=== PATIENT | male | born 1990 | race African-American/Black ===

== ENCOUNTER 2017-06-02 12:18 | Emergency (ER) | payer SELFPAY ==
[~2017-06-02] VITALS: Ht 172.7 cm; Wt 72.0 kg
[~2017-06-02 12:18] MED LIST: AMOXICILLIN500 MG PO; ANAPROX DS550 MG OR; NAPROSYN500 MG PO; RITALIN10 MG OR; ULTRAM50 M1 PO; ULTRAM50 MG OR; ULTRAM50 MG PO; ZOFRAN4 MG/TAB PO; [UNRECOGNIZED DRUG - REMARK]
[2017-06-02 14:22] LABS: HEMATOCRIT 44.7 % (39.0-50.0); HEMOGLOBIN 15.2 g/dl (14.0-18.0); IMMATURE GRANULOCYTES 0.4 % (0.0-1.0); MEAN CELL VOLUME 90.1 fL CALC (80.0-100.0); MEAN CORPUSCULAR HGB 30.6 pG CALC (26.0-32.0); NEUT# 11.23 thou/uL (1.82-7.42); RED BLOOD COUNT 4.96 mill/uL (4.70-6.10); RED CELL DISTRI WIDTH 13.4 % (11.5-15.5)
[2017-06-02 14:42] LABS: ALBUMIN 4.5 g/dL (3.2-5.0); ALKALINE PHOSPHATASE 103 u/l (38-126); ANION GAP 15 (6-22 (CALC)); BILIRUBIN, TOTAL 1.4 mg/dL (0.0-1.4); BUN 8 mg/dL (9-20); BUN/CREATININE RATIO 8 (12-20 (CALC)); CALCIUM 9.9 mg/dL (8.4-10.2); CARBON DIOXIDE 24 mmol/l (22-30); CHLORIDE 103 mmol/l (95-108); CREATININE 0.9 mg/dL (0.7-1.3); GFR > 60 ML/MIN (>=60 (CALC)); GFR FOR AFR.AMER. > 60 ML/MIN (>=60 (CALC)); GLUCOSE 88 mg/dL (75-110); POTASSIUM 3.6 mmol/l (3.5-5.1); SGOT/AST 24 u/l (17-59); SGPT/ALT 20 u/l (21-72); SODIUM 139 mmol/l (137-146); TOTAL PROTEIN 8.1 g/dL (6.3-8.2)
[2017-06-02] MEDS ORDERED: CLEOCIN300 MG PO (16:14)
[2017-06-02] MEDS ORDERED: TORADOL PO (16:14)
[2017-06-02 16:44] VITALS: BP 150/65
== END 2017-06-02 16:56 | disposition home or self-care (01) | DRG 605 ==
LOC: ED 12:18
PROVIDERS: Emergency Medicine
DX: S50.12XA Contusion of left forearm, initial encounter (principal); F17.210 Nicotine dependence, cigarettes, uncomplicated; F19.90 Other psychoactive substance use, unspecified, uncomplicated; X58.XXXA Exposure to other specified factors, initial encounter; Y93.89 Activity, other specified; Z59.0 Homelessness
CPT/HCPCS: Q9967

== ENCOUNTER 2018-01-21 08:48 | Emergency (ER) | payer SELFPAY ==
[~2018-01-21] VITALS: Ht 172.7 cm; Wt 80.0 kg
[~2018-01-21 08:48] MED LIST changes: +CLEOCIN300 MG PO; +TORADOL PO
[2018-01-21 09:36] VITALS: BP 129/83
== END 2018-01-21 09:45 | disposition home or self-care (01) | DRG 914 ==
LOC: ED 08:48
DX: S21.142A Puncture wound with foreign body of left front wall of thorax without penetration into thoracic cavity, initial encounter (principal); W34.010A Accidental discharge of airgun, initial encounter; Y93.89 Activity, other specified; Y92.009 Unspecified place in unspecified non-institutional (private) residence as the place of occurrence of the external cause

== ENCOUNTER 2018-06-25 23:40 | Emergency (ER) | payer SELFPAY ==
[~2018-06-25] VITALS: Ht 152.4 cm; Wt 200.0 kg
[2018-06-26 00:33] LABS: HEMATOCRIT 41.2 % (39.0-50.0); HEMOGLOBIN 13.3 g/dl (14.0-18.0); IMMATURE GRANULOCYTES 0.1 % (0.0-5.0); MEAN CELL VOLUME 91.4 fL CALC (80.0-100.0); MEAN CORPUSCULAR HGB 29.5 pG CALC (26.0-32.0); MEAN CORPUSCULAR HGB CONC 32.3 g/L CALC (32.0-36.0); NEUT# 2.95 thou/uL (1.82-7.42); RED BLOOD COUNT 4.51 mill/uL (4.70-6.10); RED CELL DISTRI WIDTH 14.1 % (11.5-15.5)
[2018-06-26 00:59] LABS: ALKALINE PHOSPHATASE 96 u/l (38-126); BUN 16 mg/dL (9-20); BUN/CREATININE RATIO 11 (12-20 (CALC)); CHLORIDE 102 mmol/l (95-108); CREATININE 1.5 mg/dL (0.7-1.3); GFR 56 ML/MIN (>=60 (CALC)); GFR FOR AFR.AMER. > 60 ML/MIN (>=60 (CALC)); POTASSIUM 3.3 mmol/l (3.5-5.1); SODIUM 139 mmol/l (137-146)
[2018-06-26 01:06] LABS: ALBUMIN 4.5 g/dL (3.2-5.0); ANION GAP 22 (6-22 (CALC)); CARBON DIOXIDE 18 mmol/l (22-30); ETHYL ALCOHOL < 10 mg/dl (0-30); SGOT/AST 77 u/l (17-59); TOTAL PROTEIN 8.1 g/dL (6.3-8.2)
[2018-06-26 01:07] LABS: MYOGLOBIN 590 ng/mL (0 - 121)
[2018-06-26 01:48] LABS: URINE BILIRUBIN - DIPSTICK NEGATIVE (NEGATIVE); URINE BLOOD DIPSTICK NEGATIVE (NEGATIVE); URINE COLOR YELLOW; URINE GLUCOSE - DIPSTICK NEGATIVE (NEGATIVE); URINE KETONE NEGATIVE (NEGATIVE); URINE LEUK ESTERASE NEGATIVE (NEGATIVE); URINE NITRITE - DIPSTICK NEGATIVE (Negative); URINE PH 5.5 (4.5-8.0); URINE PROTEIN - DIPSTICK NEGATIVE (NEG-TRACE); URINE SPECIFIC GRAVITY >=1.030; URINE UROBILINOGEN - DIPSTICK 0.2 E.U./dL (0.2)
[2018-06-26 01:53] LABS: COCAINE POSITIVE (NEGATIVE); TETRAHYDROCANNABIONOL POSITIVE (NEGATIVE)
[2018-06-26 01:54] LABS: BARBITURATES NEGATIVE (NEGATIVE); METHADONE NEGATIVE (NEGATIVE); OXCYCODONE NEGATIVE (NEGATIVE); TRICYLIC ANTIDEPRESSANTS NEGATIVE (NEGATIVE)
[2018-06-26] MEDS ORDERED: ACCUPRIL5 MG PO (07:49)
[2018-06-26 09:20] LABS: ALBUMIN 4.5 g/dL (3.2-5.0); ALKALINE PHOSPHATASE 95 u/l (38-126); ANION GAP 25 (6-22 (CALC)); BILIRUBIN, TOTAL 0.9 mg/dL (0.0-1.4); BUN 16 mg/dL (9-20); BUN/CREATININE RATIO 11 (12-20 (CALC)); CARBON DIOXIDE 17 mmol/l (22-30); CHLORIDE 102 mmol/l (95-108); CREATININE 1.4 mg/dL (0.7-1.3); GFR > 60 ML/MIN (>=60 (CALC)); GFR FOR AFR.AMER. > 60 ML/MIN (>=60 (CALC)); POTASSIUM 3.3 mmol/l (3.5-5.1); SGOT/AST 82 u/l (17-59); SODIUM 141 mmol/l (137-146); TOTAL PROTEIN 8.1 g/dL (6.3-8.2)
[2018-06-26 10:40] VITALS: BP 143/86
--- NOTE | 2018-06-28 07:35 | NUR ---
Preliminary blood cultures results, gram positive cocci 3/4 bottles, faxed to [facility]
== END 2018-06-26 10:40 | disposition short-term general hospital (02) | DRG 918 ==
LOC: ED 23:40
PROVIDERS: Family Medicine
PROC: 02HV33Z Insertion of Infusion Device into Superior Vena Cava, Percutaneous Approach (ICD-10-PCS; principal; 2018-06-25)
PROC: 0BH17EZ Insertion of Endotracheal Airway into Trachea, Via Natural or Artificial Opening (ICD-10-PCS; 2018-06-25)
PROC: 5A1935Z Respiratory Ventilation, Less than 24 Consecutive Hours (ICD-10-PCS; 2018-06-25)
PROC: 0T9B70Z Drainage of Bladder with Drainage Device, Via Natural or Artificial Opening (ICD-10-PCS; 2018-06-25)
DX: T43.621A Poisoning by amphetamines, accidental (unintentional), initial encounter (principal); M62.82 Rhabdomyolysis; T40.5X1A Poisoning by cocaine, accidental (unintentional), initial encounter; T40.7X1A Poisoning by cannabis (derivatives), accidental (unintentional), initial encounter; T40.991A Poisoning by other psychodysleptics [hallucinogens], accidental (unintentional), initial encounter; F12.10 Cannabis abuse, uncomplicated; F14.10 Cocaine abuse, uncomplicated; F16.10 Hallucinogen abuse, uncomplicated; F15.10 Other stimulant abuse, uncomplicated; F17.200 Nicotine dependence, unspecified, uncomplicated
CPT/HCPCS: J2060

== ENCOUNTER 2022-02-12 01:36 | Emergency (ER) | payer SELFPAY ==
[~2022-02-12] VITALS: Ht 172.7 cm; Wt 86.0 kg
[~2022-02-12 01:36] MED LIST changes: +ACCUPRIL5 MG PO
[2022-02-12 01:48] VITALS: BP 145/89
[2022-02-12 02:15] VITALS: BP 146/90
[2022-02-12 02:30] VITALS: BP 127/78
[2022-02-12 02:34] LABS: HEMATOCRIT 38.5 % (39.0-50.0); IMMATURE GRANULOCYTES 0.5 % (0.0-5.0); MEAN CELL VOLUME 87.9 fL CALC (80.0-100.0); MEAN CORPUSCULAR HGB 29.7 pG CALC (26.0-32.0); MEAN CORPUSCULAR HGB CONC 33.8 g/dL CAL (32.0-36.0); NEUT# 5.39 thou/uL (1.82-7.42); RED BLOOD COUNT 4.38 mill/uL (4.70-6.10); RED CELL DISTRI WIDTH 15.6 % (11.5-15.5)
[2022-02-12 02:36] LABS: URINE COLOR YELLOW; URINE GLUCOSE - DIPSTICK NEGATIVE (NEGATIVE); URINE KETONE TRACE mg/dL (NEGATIVE); URINE PROTEIN - DIPSTICK TRACE mg/dL (NEG-TRACE); URINE SPECIFIC GRAVITY 1.025
[2022-02-12 02:39] LABS: ALBUMIN 3.9 g/dL (3.2-5.0); ALKALINE PHOSPHATASE 96 u/l (38-126); BILIRUBIN, TOTAL 0.8 mg/dL (0.0-1.4); BUN 7 mg/dL (9-20); BUN/CREATININE RATIO 8 (12-20 (CALC)); CHLORIDE 100 mmol/l (95-108); ETHYL ALCOHOL 0 mg/dl (0-30); GFR FOR AFR.AMER. > 60 ML/MIN (>=60 (CALC)); GFR OTHER RACES > 60 ML/MIN (>=60 (CALC)); POTASSIUM 2.9 mmol/l (3.5-5.1); SGOT/AST 26 u/l (17-59); TOTAL PROTEIN 7.6 g/dL (6.3-8.2)
[2022-02-12 02:41] LABS: ANION GAP 10 (6-22 (CALC)); CARBON DIOXIDE 26 mmol/l (22-30); SODIUM 133 mmol/l (137-146)
[2022-02-12 02:45] VITALS: BP 131/88
[2022-02-12 02:45] LABS: URINE BILIRUBIN - DIPSTICK SMALL (NEGATIVE); URINE NITRITE - DIPSTICK NEGATIVE (Negative)
[2022-02-12 02:46] LABS: URINE BLOOD DIPSTICK NEGATIVE (NEGATIVE); URINE EPITHELIAL CELLS FEW EPI/hpf (0-FEW); URINE LEUK ESTERASE SMALL (NEGATIVE); URINE WBC 50-100 WBC/hpf (0-5)
[2022-02-12 02:47] LABS: URINE BACTERIA MODERATE hpf; URINE MUCUS MODERATE hpf (NONE-FEW)
[2022-02-12 03:30] VITALS: BP 131/88
== END 2022-02-12 03:42 | disposition home or self-care (01) | DRG 897 ==
LOC: ED 01:36
PROVIDERS: Emergency Medicine
DX: F15.10 Other stimulant abuse, uncomplicated (principal); F12.10 Cannabis abuse, uncomplicated; E87.6 Hypokalemia

== ENCOUNTER 2022-03-31 19:22 | Emergency (ER) | payer SELFPAY ==
[~2022-03-31] VITALS: Ht 172.7 cm; Wt 70.0 kg
[2022-03-31 19:29] VITALS: BP 125/75
[2022-03-31 19:45] VITALS: BP 113/61
[2022-03-31 19:51] LABS: HEMATOCRIT 37.4 % (39.0-50.0); HEMOGLOBIN 12.8 g/dl (14.0-18.0); IMMATURE GRANULOCYTES 0.2 % (0.0-5.0); MEAN CORPUSCULAR HGB 31.1 pG CALC (26.0-32.0); MEAN CORPUSCULAR HGB CONC 34.2 g/dL CAL (32.0-36.0); NEUT# 3.73 thou/uL (1.82-7.42); RED BLOOD COUNT 4.11 mill/uL (4.70-6.10); RED CELL DISTRI WIDTH 14.1 % (11.5-15.5)
[2022-03-31 20:00] VITALS: BP 111/65
[2022-03-31 20:09] LABS: ALBUMIN 3.5 g/dL (3.2-5.0); ALKALINE PHOSPHATASE 97 u/l (38-126); BUN 12 mg/dL (9-20); BUN/CREATININE RATIO 15 (12-20 (CALC)); CARBON DIOXIDE 26 mmol/l (22-30); CHLORIDE 106 mmol/l (95-108); CREATININE 0.9 mg/dL (0.7-1.3); ETHYL ALCOHOL 0 mg/dl (0-30); GFR FOR AFR.AMER. > 60 ML/MIN (>=60 (CALC)); GFR OTHER RACES > 60 ML/MIN (>=60 (CALC)); MAGNESIUM 2.1 mg/dL (1.6-2.3); SGOT/AST 25 u/l (17-59); SODIUM 138 mmol/l (137-146); TOTAL PROTEIN 6.7 g/dL (6.3-8.2)
[2022-03-31 20:10] LABS: ANION GAP 10 (6-22 (CALC)); BILIRUBIN, TOTAL 0.3 mg/dL (0.0-1.4); POTASSIUM 3.5 mmol/l (3.5-5.1)
[2022-03-31 20:15] VITALS: BP 118/65
[2022-03-31 20:30] VITALS: BP 118/71
[2022-03-31 20:45] VITALS: BP 117/80
[2022-03-31 22:30] LABS: URINE BILIRUBIN - DIPSTICK NEGATIVE (NEGATIVE); URINE BLOOD DIPSTICK NEGATIVE (NEGATIVE); URINE COLOR YELLOW; URINE GLUCOSE - DIPSTICK NEGATIVE (NEGATIVE); URINE KETONE NEGATIVE (NEGATIVE); URINE LEUK ESTERASE TRACE (NEGATIVE); URINE PH 5.5 (4.5-8.0); URINE PROTEIN - DIPSTICK NEGATIVE (NEG-TRACE); URINE SPECIFIC GRAVITY >=1.030; URINE UROBILINOGEN - DIPSTICK 0.2 E.U./dL (0.2)
[2022-03-31 22:43] LABS: URINE NITRITE - DIPSTICK NEGATIVE (Negative)
[2022-04-03 20:10] VITALS: BP 112/77
== END 2022-04-03 20:30 | DRG 897 ==
LOC: ED 19:22
PROVIDERS: Family Medicine
DX: F19.10 Other psychoactive substance abuse, uncomplicated (principal); R45.851 Suicidal ideations; F32.A Depression, unspecified
CPT/HCPCS: J2060; S0166

== ENCOUNTER 2022-06-21 06:38 | Emergency (ER) | payer SELFPAY ==
[2022-06-21] VITALS (31 sets, daily range): BP systolic 95–126; BP diastolic 53–76
[~2022-06-21] VITALS: Ht 172.7 cm; Wt 70.0 kg
[2022-06-21 08:32] LABS: BASO% 0.2 % (0-3); EOS% 0.7 % (0-8); HEMATOCRIT 40.3 % (39.0-50.0); HEMOGLOBIN 13.1 g/dl (14.0-18.0); IMMATURE GRANULOCYTES 0.1 % (0.0-5.0); LYMPH% 18.7 % (15-41); MEAN CELL VOLUME 89.8 fL CALC (80.0-100.0); MEAN CORPUSCULAR HGB 29.2 pG CALC (26.0-32.0); MEAN CORPUSCULAR HGB CONC 32.5 g/dL CAL (32.0-36.0); MONO% 6.4 % (2-13); NEUT# 6.07 thou/uL (1.82-7.42); NEUT% 73.9 % (42-76); RED BLOOD COUNT 4.49 mill/uL (4.70-6.10); RED CELL DISTRI WIDTH 13.2 % (11.5-15.5)
[2022-06-21 08:52] LABS: ALBUMIN 4.2 g/dL (3.2-5.0); ALKALINE PHOSPHATASE 94 u/l (38-126); ANION GAP 12 (6-22 (CALC)); BUN 16 mg/dL (9-20); BUN/CREATININE RATIO 14 (12-20 (CALC)); CARBON DIOXIDE 24 mmol/l (22-30); CHLORIDE 102 mmol/l (95-108); CREATININE 1.2 mg/dL (0.7-1.3); GFR FOR AFR.AMER. > 60 ML/MIN (>=60 (CALC)); GFR OTHER RACES > 60 ML/MIN (>=60 (CALC)); POTASSIUM 3.8 mmol/l (3.5-5.1); SGOT/AST 33 u/l (17-59); SODIUM 134 mmol/l (137-146); TOTAL PROTEIN 7.4 g/dL (6.3-8.2)
[2022-06-21 09:00] LABS: ETHYL ALCOHOL 0 mg/dl (0-30)
[2022-06-21 10:35] LABS: URINE BILIRUBIN - DIPSTICK NEGATIVE (NEGATIVE); URINE BLOOD DIPSTICK NEGATIVE (NEGATIVE); URINE COLOR YELLOW; URINE GLUCOSE - DIPSTICK NEGATIVE (NEGATIVE); URINE KETONE NEGATIVE (NEGATIVE); URINE LEUK ESTERASE NEGATIVE (NEGATIVE); URINE PROTEIN - DIPSTICK NEGATIVE (NEG-TRACE); URINE SPECIFIC GRAVITY >=1.030; URINE UROBILINOGEN - DIPSTICK 0.2 E.U./dL (0.2)
[2022-06-21 10:54] LABS: URINE NITRITE - DIPSTICK NEGATIVE (Negative)
== END 2022-06-21 15:50 | disposition home or self-care (01) | DRG 918 ==
LOC: ED 06:38
PROVIDERS: Family Medicine
DX: T43.651A Poisoning by methamphetamines accidental (unintentional), initial encounter (principal); Y92.9 Unspecified place or not applicable; F17.210 Nicotine dependence, cigarettes, uncomplicated
CPT/HCPCS: J2060

== ENCOUNTER 2022-06-28 02:13 | Emergency (ER) | payer SELFPAY ==
[2022-06-28] VITALS (39 sets, daily range): BP systolic 104–164; BP diastolic 60–109
[~2022-06-28] VITALS: Ht 172.7 cm; Wt 72.5 kg
[2022-06-28 08:06] LABS: URINE BLOOD DIPSTICK NEGATIVE (NEGATIVE); URINE COLOR YELLOW; URINE GLUCOSE - DIPSTICK NEGATIVE (NEGATIVE); URINE KETONE TRACE mg/dL (NEGATIVE); URINE LEUK ESTERASE TRACE (NEGATIVE); URINE PH 5.5 (4.5-8.0); URINE PROTEIN - DIPSTICK NEGATIVE (NEG-TRACE); URINE SPECIFIC GRAVITY >=1.030; URINE UROBILINOGEN - DIPSTICK 0.2 E.U./dL (0.2)
[2022-06-28 08:07] LABS: BASO% 0.1 % (0-3); EOS% 1.4 % (0-8); IMMATURE GRANULOCYTES 0.1 % (0.0-5.0); LYMPH% 24.6 % (15-41); MEAN CELL VOLUME 91.1 fL CALC (80.0-100.0); MEAN CORPUSCULAR HGB 29.7 pG CALC (26.0-32.0); MEAN CORPUSCULAR HGB CONC 32.6 g/dL CAL (32.0-36.0); MONO% 7.3 % (2-13); NEUT# 4.71 thou/uL (1.82-7.42); NEUT% 66.5 % (42-76); RED BLOOD COUNT 4.72 mill/uL (4.70-6.10); RED CELL DISTRI WIDTH 13.1 % (11.5-15.5)
[2022-06-28 08:19] LABS: URINE BILIRUBIN - DIPSTICK SMALL (NEGATIVE); URINE NITRITE - DIPSTICK NEGATIVE (Negative)
[2022-06-28 08:31] LABS: ALBUMIN 3.8 g/dL (3.2-5.0); ALKALINE PHOSPHATASE 69 u/l (38-126); ANION GAP 10 (6-22 (CALC)); BUN 11 mg/dL (9-20); BUN/CREATININE RATIO 12 (12-20 (CALC)); CARBON DIOXIDE 26 mmol/l (22-30); CHLORIDE 105 mmol/l (95-108); CREATININE 0.9 mg/dL (0.7-1.3); GFR FOR AFR.AMER. > 60 ML/MIN (>=60 (CALC)); GFR OTHER RACES > 60 ML/MIN (>=60 (CALC)); SGOT/AST 41 u/l (17-59); SODIUM 136 mmol/l (137-146)
[2022-06-28 08:32] LABS: POTASSIUM 4.6 mmol/l (3.5-5.1)
== END 2022-06-28 15:34 | disposition home or self-care (01) | DRG 918 ==
LOC: ED 02:13
PROVIDERS: Family Medicine
DX: T43.651A Poisoning by methamphetamines accidental (unintentional), initial encounter (principal); Y92.9 Unspecified place or not applicable; F17.210 Nicotine dependence, cigarettes, uncomplicated
CPT/HCPCS: J2060

== ENCOUNTER 2022-07-21 05:15 | Emergency (ER) | payer SELFPAY ==
[~2022-07-21] VITALS: Ht 172.7 cm; Wt 72.0 kg
[2022-07-21 05:54] LABS: BASO% 0.3 % (0-3); EOS% 1.2 % (0-8); HEMATOCRIT 38.8 % (39.0-50.0); IMMATURE GRANULOCYTES 0.1 % (0.0-5.0); LYMPH% 20.5 % (15-41); MEAN CELL VOLUME 91.3 fL CALC (80.0-100.0); MEAN CORPUSCULAR HGB 30.6 pG CALC (26.0-32.0); MEAN CORPUSCULAR HGB CONC 33.5 g/dL CAL (32.0-36.0); MONO% 7.6 % (2-13); NEUT# 4.74 thou/uL (1.82-7.42); NEUT% 70.3 % (42-76); RED BLOOD COUNT 4.25 mill/uL (4.70-6.10); RED CELL DISTRI WIDTH 13.4 % (11.5-15.5)
[2022-07-21 06:07] LABS: ALKALINE PHOSPHATASE 95 u/l (38-126); BILIRUBIN, TOTAL 0.8 mg/dL (0.2-1.3); BUN 14 mg/dL (9-20); BUN/CREATININE RATIO 14 (12-20 (CALC)); CARBON DIOXIDE 24 mmol/l (22-30); CHLORIDE 109 mmol/l (95-108); ETHYL ALCOHOL 0 mg/dl (0-30); GFR FOR AFR.AMER. > 60 ML/MIN (>=60 (CALC)); GFR OTHER RACES > 60 ML/MIN (>=60 (CALC)); SGOT/AST 25 u/l (17-59); SODIUM 138 mmol/l (137-146); TOTAL PROTEIN 7.1 g/dL (6.3-8.2)
[2022-07-21 06:08] LABS: ANION GAP 8 (6-22 (CALC)); POTASSIUM 3.4 mmol/l (3.5-5.1)
[2022-07-21 07:52] LABS: URINE BILIRUBIN - DIPSTICK NEGATIVE (NEGATIVE); URINE BLOOD DIPSTICK NEGATIVE (NEGATIVE); URINE COLOR YELLOW; URINE GLUCOSE - DIPSTICK NEGATIVE (NEGATIVE); URINE KETONE NEGATIVE (NEGATIVE); URINE LEUK ESTERASE NEGATIVE (NEGATIVE); URINE PH 5.5 (4.5-8.0); URINE PROTEIN - DIPSTICK NEGATIVE (NEG-TRACE); URINE SPECIFIC GRAVITY >=1.030; URINE UROBILINOGEN - DIPSTICK 0.2 E.U./dL (0.2)
[2022-07-21 07:54] LABS: URINE NITRITE - DIPSTICK NEGATIVE (Negative)
[2022-07-23 12:10] VITALS: BP 130/77
== END 2022-07-23 12:10 | disposition home or self-care (01) | DRG 880 ==
LOC: ED 05:15
PROVIDERS: Family Medicine
DX: R45.851 Suicidal ideations (principal); R41.82 Altered mental status, unspecified; Z20.822 Contact with and (suspected) exposure to COVID-19; F17.210 Nicotine dependence, cigarettes, uncomplicated; F19.10 Other psychoactive substance abuse, uncomplicated; R45.1 Restlessness and agitation; S01.01XA Laceration without foreign body of scalp, initial encounter; W22.8XXA Striking against or struck by other objects, initial encounter
CPT/HCPCS: J2060

== ENCOUNTER 2022-08-22 13:43 | Emergency (ER) | payer SELFPAY ==
[2022-08-23] MEDS ORDERED: LOTRISONE EX (23:10)
[2022-08-24] MEDS ORDERED: ZYPREXA20 MG PO (00:41)
[2022-08-24] MEDS ORDERED: SEROQUEL200 MG PO (00:41)
== END 2022-08-22 14:15 | disposition left against medical advice (07) | DRG 951 ==
LOC: ED 13:43 → LWOBS 14:15 → ED 14:15
DX: Z53.21 Procedure and treatment not carried out due to patient leaving prior to being seen by health care provider (principal)

== ENCOUNTER 2022-08-23 22:46 | Emergency (ER) | payer SELFPAY ==
[~2022-08-23] VITALS: Ht 172.7 cm; Wt 63.0 kg
[2022-08-23] MEDS ORDERED: LOTRISONE EX (23:10)
[2022-08-23 23:40] VITALS: BP 134/78
[2022-08-24] MEDS ORDERED: ZYPREXA20 MG PO (00:41)
[2022-08-24] MEDS ORDERED: SEROQUEL200 MG PO (00:41)
== END 2022-08-23 23:40 | disposition home or self-care (01) | DRG 607 ==
LOC: ED 22:46
DX: R21 Rash and other nonspecific skin eruption (principal); F17.200 Nicotine dependence, unspecified, uncomplicated

== ENCOUNTER 2023-10-01 03:51 | Emergency (ER) | payer SELFPAY ==
[~2023-10-01] VITALS: Ht 172.7 cm; Wt 70.0 kg
[~2023-10-01 03:51] MED LIST changes: +LOTRISONE EX; +SEROQUEL200 MG PO; +ZYPREXA20 MG PO
[2023-10-01 04:11] VITALS: BP 131/89
[2023-10-01] MEDS ORDERED: BUTALBITAL-APAP-CAFFEINE 50-325-40 TAB PO ONE (04:15)
[2023-10-01] MEDS ORDERED: IBUPROFEN 600 MG/TAB PO ONE (04:15)
[2023-10-01 04:30] VITALS: BP 131/76
[2023-10-01 04:36] VITALS: BP 131/76
== END 2023-10-01 04:36 | disposition home or self-care (01) | DRG 914 ==
LOC: ED 03:51
DX: T14.8XXA Other injury of unspecified body region, initial encounter (principal); F10.10 Alcohol abuse, uncomplicated; F15.10 Other stimulant abuse, uncomplicated; Z59.00 Homelessness unspecified; F25.9 Schizoaffective disorder, unspecified; F17.200 Nicotine dependence, unspecified, uncomplicated; X58.XXXA Exposure to other specified factors, initial encounter

== ENCOUNTER 2023-10-02 14:57 | Emergency (ER) | payer SELFPAY ==
[~2023-10-02] VITALS: Ht 172.7 cm; Wt 68.0 kg
[2023-10-02 15:49] LABS: BASO% 0.1 % (0-3); EOS% 0.7 % (0-8); HEMATOCRIT 42.6 % (39.0-50.0); HEMOGLOBIN 13.9 g/dl (14.0-18.0); IMMATURE GRANULOCYTES 0.2 % (0.0-5.0); LYMPH% 13.2 % (15-41); MEAN CELL VOLUME 88.9 fL CALC (80.0-100.0); MEAN CORPUSCULAR HGB CONC 32.6 g/dL CAL (32.0-36.0); MONO% 10.2 % (2-13); NEUT# 6.3 thou/uL (1.82-7.42); NEUT% 75.6 % (42-76); RED BLOOD COUNT 4.79 mill/uL (4.70-6.10)
[2023-10-02 16:21] LABS: ALBUMIN 4.2 g/dL (3.2-5.0); ALKALINE PHOSPHATASE 92 u/l (38-126); BUN 20 mg/dL (9-20); BUN/CREATININE RATIO 17 (12-20 (CALC)); CHLORIDE 107 mmol/l (95-108); CREATININE 1.2 mg/dL (0.7-1.3); ESTIMATED GFR 82 ML/MIN (>=90 (CALC)); ETHYL ALCOHOL 0 mg/dl (0-30); SGOT/AST 43 u/l (17-59); SODIUM 140 mmol/l (137-146); TOTAL PROTEIN 8.1 g/dL (6.3-8.2)
[2023-10-02 16:33] LABS: ANION GAP 8 (6-22 (CALC)); BILIRUBIN, TOTAL 1.3 mg/dL (0.2-1.3); CARBON DIOXIDE 29 mmol/l (22-30)
[2023-10-02 16:46] LABS: URINE BLOOD DIPSTICK Negative (NEGATIVE); URINE GLUCOSE - DIPSTICK 500 mg/dL (NEGATIVE); URINE KETONE 15 mg/dL (NEGATIVE); URINE LEUK ESTERASE Negative (NEGATIVE); URINE NITRITE - DIPSTICK Negative (Negative); URINE PH 5.5 (4.5-8.0); URINE PROTEIN - DIPSTICK 30 mg/dL (NEG-TRACE); URINE SPECIFIC GRAVITY >=1.030
[2023-10-02 16:48] LABS: URINE COLOR Yellow
[2023-10-02 16:56] LABS: URINE MUCUS FEW hpf (NONE-FEW); URINE RBC 0-2 RBC/hpf (0-5); URINE SQUAMOUS EPITHELIAL CELL FEW EPI/hpf (0-FEW); URINE WBC 0-2 WBC/hpf (0-5)
[2023-10-02 16:57] LABS: URINE HYALINE CAST FEW lpf (NONE-RARE)
[2023-10-02 17:09] VITALS: BP 118/78
[2023-10-02 17:15] VITALS: BP 120/80
[2023-10-02 17:30] VITALS: BP 133/81
[2023-10-02 18:07] VITALS: BP 133/81
== END 2023-10-02 18:46 | DRG 880 ==
LOC: ED 14:57
PROVIDERS: Family Medicine
DX: R45.851 Suicidal ideations (principal); F25.9 Schizoaffective disorder, unspecified; F17.200 Nicotine dependence, unspecified, uncomplicated; F19.10 Other psychoactive substance abuse, uncomplicated

== ENCOUNTER 2023-10-22 02:11 | Emergency (ER) | payer SELFPAY ==
[2023-10-22] VITALS (14 sets, daily range): BP systolic 106–143; BP diastolic 68–108
[~2023-10-22] VITALS: Ht 172.7 cm; Wt 81.0 kg
[2023-10-22 02:54] LABS: ALBUMIN 4.3 g/dL (3.2-5.0); ALKALINE PHOSPHATASE 96 u/l (38-126); ANION GAP 8 (6-22 (CALC)); BILIRUBIN, TOTAL 1.2 mg/dL (0.2-1.3); BUN 19 mg/dL (9-20); BUN/CREATININE RATIO 17 (12-20 (CALC)); CHLORIDE 109 mmol/l (95-108); CREATININE 1.1 mg/dL (0.7-1.3); ESTIMATED GFR 91 ML/MIN (>=90 (CALC)); ETHYL ALCOHOL 0 mg/dl (0-30); MAGNESIUM 2.1 mg/dL (1.6-2.3); POTASSIUM 3.9 mmol/l (3.5-5.1); SGOT/AST 29 u/l (17-59); SODIUM 136 mmol/l (137-146); TOTAL PROTEIN 8.1 g/dL (6.3-8.2)
[2023-10-22 02:55] LABS: BASO% 0.2 % (0-3); EOS% 1.1 % (0-8); HEMATOCRIT 41.2 % (39.0-50.0); HEMOGLOBIN 13.6 g/dl (14.0-18.0); IMMATURE GRANULOCYTES 0.5 % (0.0-5.0); LYMPH% 15.8 % (15-41); MEAN CELL VOLUME 89.2 fL CALC (80.0-100.0); MEAN CORPUSCULAR HGB 29.4 pG CALC (26.0-32.0); MONO% 10.2 % (2-13); NEUT# 6.13 thou/uL (1.82-7.42); NEUT% 72.2 % (42-76); RED BLOOD COUNT 4.62 mill/uL (4.70-6.10); RED CELL DISTRI WIDTH 14.1 % (11.5-15.5)
[2023-10-22 02:55] LABS: URINE BLOOD DIPSTICK Negative (NEGATIVE); URINE GLUCOSE - DIPSTICK Negative (NEGATIVE); URINE KETONE Negative (NEGATIVE); URINE LEUK ESTERASE Negative (NEGATIVE); URINE NITRITE - DIPSTICK Negative (Negative); URINE PH 5.5 (4.5-8.0); URINE PROTEIN - DIPSTICK 30 mg/dL (NEG-TRACE); URINE SPECIFIC GRAVITY >=1.030
[2023-10-22 02:59] LABS: URINE COLOR Yellow
[2023-10-22 03:03] LABS: CARBON DIOXIDE 23 mmol/l (22-30)
[2023-10-22 03:40] LABS: URINE BACTERIA FEW hpf; URINE EPITHELIAL CELLS FEW EPI/hpf (0-FEW); URINE HYALINE CAST FEW lpf (NONE-RARE); URINE MUCUS FEW hpf (NONE-FEW)
== END 2023-10-22 05:45 | DRG 918 ==
LOC: ED 02:11
PROVIDERS: Family Medicine
DX: T43.652A Poisoning by methamphetamines intentional self-harm, initial encounter (principal); F31.9 Bipolar disorder, unspecified; F20.9 Schizophrenia, unspecified; F19.10 Other psychoactive substance abuse, uncomplicated; F17.200 Nicotine dependence, unspecified, uncomplicated; Z20.822 Contact with and (suspected) exposure to COVID-19

== ENCOUNTER 2024-03-16 12:27 | Emergency (ER) | payer SELFPAY ==
[~2024-03-16] VITALS: Ht 172.7 cm; Wt 68.0 kg
[2024-03-16] MEDS ORDERED: ONDANSETRON HCl 4 MG/2 ML SDV IV ONE (12:35)
[2024-03-16] MEDS ORDERED: Diph, Acellular Pertussis, Tet 0.5 ML/VIAL (Tdap) SDV IM ONE (12:35)
[2024-03-16] MEDS ORDERED: ISOVUE-300 (Iopamidol) 100 ML SDV IV ONE ×2 (12:35)
[2024-03-16] MEDS ORDERED: MORPHINE SULFATE 4 MG/ML VIAL IV ONE (12:35)
[2024-03-16 12:37] VITALS: BP 130/86
[2024-03-16 12:45] VITALS: BP 125/88
[2024-03-16 13:00] VITALS: BP 129/83
[2024-03-16 13:12] LABS: BASO% 0.2 % (0-3); HEMATOCRIT 40.9 % (39.0-50.0); HEMOGLOBIN 13.5 g/dl (14.0-18.0); LYMPH% 25.2 % (15-41); MEAN CELL VOLUME 90.9 fL CALC (80.0-100.0); MONO% 8.5 % (2-13); NEUT# 3.18 thou/uL (1.82-7.42); NEUT% 64.1 % (42-76); RED BLOOD COUNT 4.5 mill/uL (4.70-6.10); RED CELL DISTRI WIDTH 12.8 % (11.5-15.5)
[2024-03-16 13:15] VITALS: BP 120/82
[2024-03-16 13:31] LABS: ALBUMIN 3.9 g/dL (3.2-5.0); ALKALINE PHOSPHATASE 74 u/l (38-126); ANION GAP 13 (6-22 (CALC)); BUN 16 mg/dL (9-20); BUN/CREATININE RATIO 15 (12-20 (CALC)); CARBON DIOXIDE 24 mmol/l (22-30); CHLORIDE 108 mmol/l (95-108); CREATININE 1.1 mg/dL (0.7-1.3); ESTIMATED GFR 91 ML/MIN (>=90 (CALC)); POTASSIUM 4.1 mmol/l (3.5-5.1); SGOT/AST 23 u/l (17-59); SODIUM 140 mmol/l (137-146)
[2024-03-16 13:32] LABS: BILIRUBIN, TOTAL 0.4 mg/dL (0.2-1.3)
[2024-03-16 16:18] VITALS: BP 120/82
== END 2024-03-16 16:25 | disposition home or self-care (01) | DRG 605 ==
LOC: ED 12:27
PROVIDERS: Family Medicine
DX: S20.412A Abrasion of left back wall of thorax, initial encounter (principal); S80.211A Abrasion, right knee, initial encounter; S80.01XA Contusion of right knee, initial encounter; F20.9 Schizophrenia, unspecified; F19.10 Other psychoactive substance abuse, uncomplicated; F17.200 Nicotine dependence, unspecified, uncomplicated; V13.4XXA Pedal cycle driver injured in collision with car, pick-up truck or van in traffic accident, initial encounter
CPT/HCPCS: Q9967

== ENCOUNTER 2024-05-22 12:01 | Emergency (ER) | payer OTHER ==
[~2024-05-22] VITALS: Ht 172.7 cm; Wt 82.0 kg
[2024-05-22] VITALS (25 sets, daily range): BP systolic 54–145; BP diastolic 33–104
[2024-05-22] MEDS ORDERED: HALOPERIDOL LACTATE 5 MG/ML SDV IV ONE (12:25)
[2024-05-22 12:46] LABS: BASO% 0.2 % (0-3); EOS% 1.2 % (0-8); HEMATOCRIT 41.1 % (39.0-50.0); HEMOGLOBIN 13.7 g/dl (14.0-18.0); IMMATURE GRANULOCYTES 0.2 % (0.0-5.0); MEAN CELL VOLUME 90.5 fL CALC (80.0-100.0); MEAN CORPUSCULAR HGB 30.2 pG CALC (26.0-32.0); MEAN CORPUSCULAR HGB CONC 33.3 g/dL CAL (32.0-36.0); MONO% 8.7 % (2-13); NEUT# 4.85 thou/uL (1.82-7.42); NEUT% 72.7 % (42-76); RED BLOOD COUNT 4.54 mill/uL (4.70-6.10); RED CELL DISTRI WIDTH 12.8 % (11.5-15.5)
[2024-05-22 12:56] LABS: ALBUMIN 3.8 g/dL (3.2-5.0); ALKALINE PHOSPHATASE 95 u/l (38-126); ANION GAP 11 (6-22 (CALC)); BUN 13 mg/dL (9-20); BUN/CREATININE RATIO 12 (12-20 (CALC)); CARBON DIOXIDE 23 mmol/l (22-30); CHLORIDE 109 mmol/l (95-108); CREATININE 1.1 mg/dL (0.7-1.3); ESTIMATED GFR 91 ML/MIN (>=90 (CALC)); ETHYL ALCOHOL 98 mg/dl (0-30); POTASSIUM 3.9 mmol/l (3.5-5.1); SODIUM 140 mmol/l (137-146); TOTAL PROTEIN 7.4 g/dL (6.3-8.2)
[2024-05-22 12:57] LABS: BILIRUBIN, TOTAL 1.1 mg/dL (0.2-1.3); SGOT/AST 57 u/l (17-59)
[2024-05-22 13:30] LABS: URINE BLOOD DIPSTICK Negative (NEGATIVE); URINE GLUCOSE - DIPSTICK Negative (NEGATIVE); URINE KETONE Trace mg/dL (NEGATIVE); URINE LEUK ESTERASE Negative (NEGATIVE); URINE NITRITE - DIPSTICK Negative (Negative); URINE PH 5.5 (4.5-8.0); URINE PROTEIN - DIPSTICK 30 mg/dL (NEG-TRACE); URINE SPECIFIC GRAVITY >=1.030
[2024-05-22 13:36] LABS: URINE COLOR Yellow
[2024-05-22 13:38] LABS: URINE EPITHELIAL CELLS FEW EPI/hpf (0-FEW); URINE MUCUS MANY hpf (NONE-FEW)
== END 2024-05-22 23:48 | DRG 880 ==
LOC: ED 12:01
PROVIDERS: Family Medicine
DX: R45.851 Suicidal ideations (principal); F25.9 Schizoaffective disorder, unspecified; F19.10 Other psychoactive substance abuse, uncomplicated; F17.200 Nicotine dependence, unspecified, uncomplicated
CPT/HCPCS: J1630

== ENCOUNTER 2024-06-17 18:23 | Emergency (ER) | payer SELFPAY ==
[~2024-06-17] VITALS: Ht 172.7 cm; Wt 75.0 kg
[2024-06-17] MEDS ORDERED: LORazepam 2 MG/ML IM ONE (19:05)
[2024-06-17 19:20] LABS: BASO% 0.3 % (0-3); EOS% 0.4 % (0-8); HEMATOCRIT 39.7 % (39.0-50.0); HEMOGLOBIN 13.2 g/dl (14.0-18.0); IMMATURE GRANULOCYTES 0.2 % (0.0-5.0); MEAN CELL VOLUME 89.8 fL CALC (80.0-100.0); MEAN CORPUSCULAR HGB 29.9 pG CALC (26.0-32.0); MEAN CORPUSCULAR HGB CONC 33.2 g/dL CAL (32.0-36.0); MONO% 9.1 % (2-13); NEUT# 8.82 thou/uL (1.82-7.42); RED BLOOD COUNT 4.42 mill/uL (4.70-6.10); RED CELL DISTRI WIDTH 13.5 % (11.5-15.5)
[2024-06-17 19:30] LABS: MAGNESIUM 2.1 mg/dL (1.6-2.3)
[2024-06-17 19:32] LABS: ALBUMIN 4.3 g/dL (3.2-5.0); ALKALINE PHOSPHATASE 92 u/l (38-126); ANION GAP 13 (6-22 (CALC)); BILIRUBIN, TOTAL 1.3 mg/dL (0.2-1.3); BUN 24 mg/dL (9-20); BUN/CREATININE RATIO 17 (12-20 (CALC)); CARBON DIOXIDE 24 mmol/l (22-30); CHLORIDE 109 mmol/l (95-108); CREATININE 1.4 mg/dL (0.7-1.3); ESTIMATED GFR 68 ML/MIN (>=90 (CALC)); ETHYL ALCOHOL < 10 mg/dl (0-30); SGOT/AST 80 u/l (17-59); SODIUM 143 mmol/l (137-146); TOTAL PROTEIN 7.7 g/dL (6.3-8.2)
[2024-06-17 20:58] LABS: URINE BLOOD DIPSTICK Negative (NEGATIVE); URINE GLUCOSE - DIPSTICK Negative (NEGATIVE); URINE KETONE Trace mg/dL (NEGATIVE); URINE LEUK ESTERASE Negative (NEGATIVE); URINE NITRITE - DIPSTICK Negative (Negative); URINE PROTEIN - DIPSTICK 30 mg/dL (NEG-TRACE); URINE SPECIFIC GRAVITY >=1.030; URINE UROBILINOGEN - DIPSTICK 0.2 E.U./dL (0.2)
[2024-06-17 20:59] LABS: URINE COLOR Dark yellow
[2024-06-17 21:06] LABS: URINE AMORPH SEDIMENT MODERATE hpf (NONE-FER); URINE RENAL EPITHELIAL CELLS FEW hpf
[2024-06-17 21:07] LABS: URINE COARSE GRANULAR CAST FEW lpf; URINE HYALINE CAST MODERATE lpf (NONE-RARE); URINE SQUAMOUS EPITHELIAL CELL FEW EPI/hpf (0-FEW); URINE TRANSITIONAL EPI. CELLS FEW hpf
[2024-06-17 21:08] LABS: URINE MUCUS FEW hpf (NONE-FEW)
[2024-06-17] MEDS ORDERED: SODIUM CHLORIDE 0.9% 1,000 ML IV ONE ×2 (21:15)
[2024-06-17 23:15] LABS: CPK 1068 u/l (55-170)
[2024-06-18 00:04] VITALS: BP 124/72
== END 2024-06-18 00:06 | disposition designated cancer center or children's hospital (05) | DRG 880 ==
LOC: ED 18:23
PROVIDERS: Internal Medicine; Nurse Practitioner
DX: R45.851 Suicidal ideations (principal); F15.10 Other stimulant abuse, uncomplicated; F17.200 Nicotine dependence, unspecified, uncomplicated; N28.9 Disorder of kidney and ureter, unspecified
CPT/HCPCS: J2060